=== PATIENT | male | born 1995 | race Caucasian/White ===

== ENCOUNTER → 2021-07-06 | Outpatient (CLI) | payer MEDICAID ==
[~2021-07-06] VITALS: Ht 165.1 cm; Wt 92.1 kg
[~2021-07-06] MED LIST: CLN.1T PO; DIVA500T15 PO; LEVO50TA6 PO; PANT40TA52 PO; POLY17PO54 PO; RISP2TAB84 PO; SERT-414 PO
== END ==
LOC: PREOP 14:30
PROVIDERS: ATTEND Surgery
DX: Z01.818 Encounter for other preprocedural examination (principal)

== ENCOUNTER 2021-07-14 11:14 | Day surgery (SDC) | payer MEDICAID ==
[~2021-07-14] VITALS: Ht 165 cm; Wt 92.1 kg
[2021-07-14] MEDS ORDERED: LACTATED RINGERS 1,000 ML IV ONE (11:20)
[2021-07-14] MEDS ORDERED: LACTATED RINGERS 1,000 ML IV STA (11:23)
[2021-07-14] MEDS ORDERED: LIDOCAINE JELLY 2% 6 ML SYRINGE MM PRN (11:30)
[2021-07-14] MEDS ORDERED: HURRICAINE EXT TUBE (BENZOCAINE) XX PRN (11:30)
[2021-07-14 11:40] VITALS: BP 123/80
[2021-07-14] MEDS ORDERED: ONDANSETRON 4 MG (ZOFRAN) ORAL DISSOLVE TAB PO PRN (11:45)
[2021-07-14] MEDS ORDERED: ONDANSETRON 4 MG/2 ML (SDV) Z0FRAN IVP PRN (11:45)
--- NOTE | 2021-07-14 11:45 | Progress Note-Pre Operative ---
Pre-Operative Progress Note H&P Reviewed The H&P was reviewed, patient examined and no changes noted. Date Seen by Provider: Jul 14, 2021 Time Seen by Provider: 11:40 Date H&P Reviewed: Jul 14, 2021 Time H&P Reviewed: 11:40 Pre-Operative Diagnosis: anemia, rectal bleed SHANNAN JOHANSEN MD Jul 14, 2021 11:45
--- NOTE | 2021-07-14 11:46 | Discharge Inst-Surgical ---
D/C Lap Instructions-ELENO Follow Up Activity as tolerated High Fiber Diet 25g or more per day Avoid Alcohol, Caffeine, Spicy [place] and Acid foods. Drink 64 fluid oz or more of fluids per day. Symptoms to Report: Fever over 101 degree F, Nausea/Vomiting If any problems/questions: Contact your physician or go to Emergency Room SHANNAN JOHANSEN MD Jul 14, 2021 11:46
[2021-07-14] MEDS ORDERED: PROPOFOL INJECTION 50 ML IV ONE ×2 (12:34→13:09)
[2021-07-14] MEDS ORDERED: MIDAZOLAM 2 MG/2 ML (VERSED) VIAL ONE (12:34)
[2021-07-14 13:25] VITALS: BP 100/68
[2021-07-14 13:30] VITALS: BP 114/70
[2021-07-14 13:35] VITALS: BP 103/73
[2021-07-14 13:40] VITALS: BP 112/79
[2021-07-14 14:07] VITALS: BP 112/79
--- NOTE | 2021-07-14 14:24 | Progress Note-Post Operative ---
Post-Operative Progess Note Surgeon (s)/Car Sales Representative (s) Surgeon SHANNAN JOHANSEN MD Car Sales Representative: none Pre-Operative Diagnosis anemia, rectal bleed Post-Operative Diagnosis reflux esophagitis(grade B), small HH(2cm), moderate gastritis. chronic stage 2 ext and int hemorrhoids, anal canal ulcer vs. scar tissue from trauma Procedure & Operative Findings Date of Procedure 07/14/21 Procedure Performed/Findings EGD with bx. colonoscopy with bx. Anesthesia Type mac Estimated Blood Loss Estimated blood loss (mL): minimal Specimens/Packing Specimens Removed ge jxn, antrum, rectum, desc colon SHANNAN JOHANSEN MD Jul 14, 2021 14:24
--- NOTE | 2021-07-14 14:36 | Anesthesia-General Post-Op ---
MAC Patient Condition Mental Status/LOC: Same as Preop Cardiovascular: Satisfactory Nausea/Vomiting: Absent Respiratory: Satisfactory Pain: Controlled Complications: Absent Post Op Complications Complications None Follow Up Care/Instructions Patient Instructions None needed. Anesthesiology Discharge Order Discharge Order Patient is doing well, no complaints, stable vital signs, no apparent adverse anesthesia problems. No complications reported per nursing. JOHNSON WAKEFIELD CRNA Jul 14, 2021 14:36
--- NOTE | 2021-07-14 18:00 | OPERATIVE REPORT ---
DATE OF SERVICE: 07/14/2021 ATTENDING PRIMARY BUS GREASER: JENNIFER Zapata. PREOPERATIVE DIAGNOSES: Anemia, rectal bleeding. POSTOPERATIVE DIAGNOSES: Reflux esophagitis, [place] grade B, small hiatal hernia 2 cm in size with gastritis surrounding the cardia and fundus of the stomach, moderate in severity. No active bleeding. Chronic stage II external and internal hemorrhoids, mass versus inflammatory ulcer of the rectum as well as inflammatory start of the descending colon, which may indicate an inflammatory bowel disease. PROCEDURE: EGD with biopsy, colonoscopy with biopsy. SURGEON: Shannan Johansen MD. ANESTHESIA: Monitored anesthesia care. ESTIMATED BLOOD LOSS: Minimal. FINDINGS: Same as postoperative diagnoses. DISPOSITION: The patient tolerated the procedure well. INDICATIONS: The patient is a 25-year-old male referred over to us for diarrhea, blood in the stools as well as unintentional weight loss. He does have a history of cognitive developmental delay. They do not report any history of any nausea no vomiting and is currently a resident of a jail. He did have a laboratory work done, which did show hemoglobin of 9.3. DESCRIPTION OF PROCEDURE: The patient was brought to the endoscopy suite, laid in the left lateral decubitus position. After adequate IV pain and sedative medications and monitored anesthesia care, the mouthpiece was applied. The endoscope was placed in the mouth, visualizing the pharynx and hypopharyngeal region. Vocal cords, epiglottis and vallecula identified and appeared to be normal. The endoscope was then gently intubated the esophageal opening and esophagus insufflated. The endoscope was then advanced through the first, second and third portion of esophagus at the level of GE junction, a reflux esophagitis, [place] grade B identified. No ulcers or strictures identified and a biopsy was taken with forceps with visualization of good hemostasis. The endoscope was then advanced in the stomach and endoscope retroflexed, visualizing a small to moderate size hiatal hernia approximately 2 cm in size. Surrounding this area encompassing the cardia as well as the fundus of the stomach was a moderate gastritis. No active bleeding identified. There were no formal ulcerations, polyps, or any neoplasms identified. A biopsy was taken of the antrum to rule out H. pylori with visualization of good hemostasis. The endoscope was then advanced to the pylorus and the first and second portions of the duodenum, which appeared normal with no ulcerations or any active bleeding sources. The endoscope was slowly withdrawn while taking a second look and suctioning of residual air with no additional findings. A digital rectal examination was performed. There was chronic stage II external and internal hemorrhoids, not actively edematous nor inflamed and no bleeding. There was a palpable mass in the anal canal with raised edges as well as what appeared to be a crater or a base. Prostate gland was palpable and appeared normal. The endoscope was then intubated to the anus and an ulcerative type of lesion was identified with heaped up borders and multiple biopsies were taken of this with forceps with visualization of good hemostasis. The endoscope was then advanced through the valves of [place] of the rectum with no polyps or any neoplasms identified. There were no diverticulosis of the sigmoid colon. At the level of the descending colon, another very small mucosal inflammatory spot was identified and this was biopsied with forceps. The endoscope was then advanced through the remainder of the descending, transverse and ascending colon to the cecum, which appeared normal. The endoscope was then slowly withdrawn while taking a second look and suctioning of residual air with no additional findings. The patient tolerated the procedure well. For his reflux esophagitis and gastritis and hiatal hernia, we will recommend the necessary lifestyle and dietary accommodation including small and more frequent meals, avoidance of eating at night as well as head elevation while lying supine. He also needs to avoid caffeinated beverages, spicy, greasy and acidic foods and we will also start him on Protonix 40 mg daily. We are unsure of the ulcer and the anal canal as well as the mucosal inflammation of the descending colon; however, this may indicate an inflammatory bowel disease, namely ulcerative colitis and we will await the biopsy results and if this is consistent with an inflammatory bowel disease, we will refer him to gastroenterology for appropriate medical therapy. Job ID: [id number] DocumentID: [id number] Dictated Date: 07/14/2021 13:32:37 Gm Video Date: 07/14/2021 17:59:47 Dictated By: SHANNAN JOHANSEN MD
== END 2021-07-14 14:07 | disposition home or self-care (01) ==
LOC: ENDO 11:14
PROVIDERS: ATTEND Surgery
DX: D50.9 Iron deficiency anemia, unspecified (principal); K21.00 Gastro-esophageal reflux disease with esophagitis, without bleeding; K29.70 Gastritis, unspecified, without bleeding; K64.1 Second degree hemorrhoids; K64.4 Residual hemorrhoidal skin tags; K44.9 Diaphragmatic hernia without obstruction or gangrene; K63.89 Other specified diseases of intestine; K62.89 Other specified diseases of anus and rectum; K92.1 Melena